=== PATIENT | female | born 1980 | race Hispanic/Latino ===

== ENCOUNTER 2017-10-18 19:09 | Outpatient (CLI) | payer MEDICAID ==
[2017-10-18 19:37] VITALS: BP 129/80
[2017-10-18] MEDS ORDERED: LACTATED RINGERS 1,000 ML IV ONE (19:51)
[2017-10-18 20:58] LABS: Amphetamine Screen,Urine PRESUMPTIVE NEGATIVE; Benzodiazepines Screen,Urine PRESUMPTIVE NEGATIVE; Cannabinoid Screen,Urine PRESUMPTIVE NEGATIVE; Cocaine Screen,Urine PRESUMPTIVE NEGATIVE; Methadone Screen,Urine PRESUMPTIVE NEGATIVE; Opiate Screen,Urine PRESUMPTIVE NEGATIVE
[2017-10-18 20:59] LABS: Bilirubin,Urine NEG (Negative); Blood,Urine NEG (Negative); Color,Urine Yellow (Yellow); Mucus,Urine FEW /HPF; Protein,Urine <15 mg/dL mg/dL (Negative); Urobilinogen,Urine < 2.0 mg/dL (<2.0)
--- NOTE | 2017-10-18 23:37 | Ultrasound Report ---
FINAL REPORT PROCEDURE: US OB > = 14 WEEKS FETUS TECHNIQUE: Real-time transabdominal sonography of the uterus, placenta, amniotic fluid, adnexa, and fetus was performed with image documentation. Measurements were obtained to determine age/size. M-mode Doppler was used to document heartbeat. CPT 58489 HISTORY: no care COMPARISON: No prior studies are available for comparison. FINDINGS: ADDITIONAL GESTATION: None. GENERAL: IUP: Single living intrauterine . Position: Cephalic Placental position: Fundal, without previa. Amniotic fluid volume: Normal. MATERNAL: Uterus: Within normal limits. Cervical length: 2.3 cm. Internal Os: Closed. FETUS: Heart rate and rhythm: 149 beats per minute anatomic survey: Limited evaluation of the heart and brain. MEASUREMENTS: BPD: 8.38 centimeters correspond at 33 weeks and 5 days HC: 32.05 centimeters corresponding to 36 weeks and 1 day AC: 30.85 centimeters correspond at 34 weeks and 6 days FL: 6 centimeters correspond at 31 weeks and 4 days Mean Gestational Age (composite criteria): 34 weeks and 1 day Ratio biometry: Normal. Estimated Weight: 2311 grams. Interval growth: No prior study Estimated Due Date (earliest scan): 11/28/2017 IMPRESSION: Single intrauterine gestation at 34 weeks and 1 day. Estimated due date: 11/28/2017. Normal survey with appropriate growth.
--- NOTE | 2017-10-18 23:51 | Ultrasound Report ---
FINAL REPORT PROCEDURE: US OB > = 14 WEEKS FETUS TECHNIQUE: Real-time transabdominal sonography of the uterus, placenta, amniotic fluid, adnexa, and fetus was performed with image documentation. Measurements were obtained to determine age/size. M-mode Doppler was used to document heartbeat. CPT 08742 HISTORY: no care COMPARISON: No prior studies are available for comparison. FINDINGS: ADDITIONAL GESTATION: None. GENERAL: IUP: Single living intrauterine . Position: Cephalic Placental position: Fundal, without previa. Amniotic fluid volume: Normal. MATERNAL: Uterus: Within normal limits. Cervical length: 2.3 cm. Internal Os: Closed. FETUS: Heart rate and rhythm: 149 beats per minute anatomic survey: Limited evaluation of the heart and brain. MEASUREMENTS: BPD: 8.38 centimeters correspond at 33 weeks and 5 days HC: 32.05 centimeters corresponding to 36 weeks and 1 day AC: 30.85 centimeters correspond at 34 weeks and 6 days FL: 6 centimeters correspond at 31 weeks and 4 days Mean Gestational Age (composite criteria): 34 weeks and 1 day Ratio biometry: Normal. Estimated Weight: 2311 grams. Interval growth: No prior study Estimated Due Date (earliest scan): 11/28/2017 Biophysical profile: breathing movements: 2. movements: 2. posterior and tone: 2. Amniotic fluid volume: 2. Total score: 8/8. IMPRESSION: Normal biophysical profile. Single intrauterine gestation at 34 weeks and 1 day. Estimated due date: 11/28/2017. Normal survey with appropriate growth.
== END 2017-10-18 21:48 | disposition left against medical advice (07) ==
LOC: TRG 19:09
PROVIDERS: ATTEND Obstetrics & Gynecology
DX: O26.893 Other specified pregnancy related conditions, third trimester (principal); O99.333 Smoking (tobacco) complicating pregnancy, third trimester; F17.210 Nicotine dependence, cigarettes, uncomplicated; M54.9 Dorsalgia, unspecified; Z3A.35 35 weeks gestation of pregnancy; Z79.899 Other long term (current) drug therapy
CPT/HCPCS: 59025; 76805; 76819; 80307; 81001; 96360; J7120

== ENCOUNTER 2021-10-13 20:29 | Emergency (ER) | payer MEDICAID | END 2021-10-13 20:37 | disposition left against medical advice (07) | LOC: ED 20:29 | DX: S49.92XA Unspecified injury of left shoulder and upper arm, initial encounter (principal); Z53.21 Procedure and treatment not carried out due to patient leaving prior to being seen by health care provider; X58.XXXA Exposure to other specified factors, initial encounter; Y93.89 Activity, other specified; Y92.89 Other specified places as the place of occurrence of the external cause; Y99.8 Other external cause status ==